=== PATIENT | female | born 1970 | race African-American/Black ===

== ENCOUNTER 2023-11-07 11:35 | Emergency (ER) | payer OTHER ==
--- NOTE | 2023-11-07 12:15 | ED ---
Overdose HPI - General Source: patient, RN notes reviewed <Dia Lim - Last Filed: 11/07/23 12:14> <Bharat Montana - Last Filed: 11/07/23 17:13> - General Stated Complaint: Weakness Time Seen by Provider: 11/07/23 11:49 - History of Present Illness Initial Comments: Quick [id number] female presents the emergency department from [place] for chief complaint of overdose. Patient was discharged from [facility] as they found a "baggy with foreign substance. Currently patient states that she feels "tired'. (Dia Lim) This is a 53-year-old female who was at [facility] for cocaine abuse. [facility] stated that they caught her taking some crushed up medications and so they sent her to the hospital. Patient is alert and oriented x 4 she denies any symptoms denies wanting to be kicked out of [facility] and she denies taking any medication. Patient denies chest pain difficulty breathing shortness of breath. Patient has any fever chills or cough. Patient has abdominal pain patient has nausea vomiting or diarrhea. (Bharat Montana) - Related Data Allergies Allergy/AdvReac Type Severity Reaction Status Date / Time No Known Allergies Allergy Verified 11/07/23 12:20 Review of Systems ROS Other: All systems not noted in ROS Statement are negative. <Dia Lim - Last Filed: 11/07/23 12:14> ROS Other: All systems not noted in ROS Statement are negative. <Bharat Montana - Last Filed: 11/07/23 17:13> ROS Statement: Those systems with pertinent positive or pertinent negative responses have been documented in the HPI. General Exam <Dia Lim - Last Filed: 11/07/23 12:14> <Bharat Montana - Last Filed: 11/07/23 17:13> - General Exam Comments Initial Comments: Visual Physical Exam Vital signs reviewed General: Well-appearing, lethargic, no acute distress. Head: Normocephalic, atraumatic Eyes: PERRLA, EOMI ENT: Airway patent Chest: Nonlabored breathing Skin: No visual rash, normal skin tone Neuro: Alert and oriented 3 Musculoskeletal: No gross abnormalities (Dia Lim) GENERAL: Patient is well-developed and well-nourished. Patient is nontoxic and well- hydrated and is in no acute distress. Patient is very tired but easily arousable with verbal commands ENT: Neck is soft and supple. No significant lymphadenopathy is noted. Oropharynx is clear. Moist mucous membranes. Neck has full range of motion without eliciting any pain. EYES: The sclera were anicteric and conjunctiva were pink and moist. Extraocular movements were intact and pupils were equal round and reactive to light. Eyelids were unremarkable. PULMONARY: Unlabored respirations. Good breath sounds bilaterally. CARDIOVASCULAR: There is a regular rate and rhythm without any murmurs gallops or rubs. ABDOMEN: Soft and nontender with normal bowel sounds. SKIN: Skin is clear with no lesions or rashes and otherwise unremarkable. NEUROLOGIC: Patient is alert and oriented x3. Cranial nerves II through XII are grossly intact. Motor and sensory are also intact. Normal speech, volume and content. Symmetrical smile. MUSCULOSKELETAL: Normal extremities with adequate strength and full range of motion. No lower extremity swelling or edema. No calf tenderness. LYMPHATICS: No significant lymphadenopathy is noted PSYCHIATRIC: Normal psychiatric evaluation. (Bharat Montana) Course Vital Signs 11/07/23 12:17 Temperature 98.2 F Pulse Rate 64 Respiratory 20 Rate Blood Pressure 110/71 O2 Sat by Pulse 100 Oximetry Medical Decision Making <Dia Lim - Last Filed: 11/07/23 12:14> - Lab Data Result diagrams: 11/07/23 12:37 11/07/23 12:37 <Bharat Montana - Last Filed: 11/07/23 17:13> - Medical Decision Making I completed the quick note portion of this chart signed Dia Lim PA-C (Dia Lim) Was pt. sent in by a medical professional or institution (FARHAD Martinez, [employer], urgent care, hospital, or prison...) When possible be specific @ -[facility] Did you speak to anyone other than the patient for history (EMS, parent, family, police, friend...)? What history was obtained from this source @ -No Did you review nursing and triage notes (agree or disagree)? Why? @ -I reviewed and agree with nursing and triage notes Were old charts reviewed (outside hosp., previous admission, EMS record, old EKG, old radiological studies, urgent care reports/EKG's, prison records)? Report findings @ -No old charts were reviewed Differential Diagnosis? @ -Possible overdose, send my alcohol and illegal drug use, normal exam, this is not an all-inclusive list EKG interpreted by me (3pts min.). @ -As above X-rays interpreted by me (1pt min.). @ -None done CT interpreted by me (1pt min.). @ -None done U/S interpreted by me (1pt. min.). @ -None done What testing was considered but not performed or refused? (CT, X-rays, U/S, labs)? Why? @ -None What meds were considered but not given or refused? Why? @ -None Did you discuss the management of the patient with other professionals (professionals i.e. , PA, [employer], lab, RT, psych nurse, social media director, energy scheduler, teacher, executive officer, disability case manager)? Give summary @ -No Was smoking cessation discussed for >3mins.? @ -No Was critical care preformed (if so, how long)? @ -No Were there social determinants of health that impacted care today? How? (H omelessness, low income, unemployed, alcoholism, drug addiction, transportation, low edu. Level, literacy, decrease access to med. care, [place] [facility], rehab)? @ -No Was there de-escalation of care discussed even if they declined (Discuss DNR or withdrawal of care, Hospice)? DNR status @ -No What co-morbidities impacted this encounter? (DM, HTN, Smoking, COPD, CAD, Cancer, CVA, ARF, Chemo, Hep., AIDS, mental health diagnosis, sleep apnea, morbid obesity)? @ -None Was patient admitted / discharged? Hospital course, mention meds given and route, prescriptions, significant lab abnormalities, going to OR and other pertinent info. @ -I spoke with the patient on 2 occasions and neither time did she admit to taking any medications that were not hers or taking excessive amount of her medications and in fact the med she brought from [place] had more pills than they were supposed to have in them. Patient denies any symptoms patient was up and walk to the cafeteria and got food and was eating it she was not drowsy she had no complaints and she wanted to be discharged. Undiagnosed new problem with uncertain prognosis? @ -No Drug Therapy requiring intensive monitoring for toxicity (Heparin, Nitro, Insulin, Cardizem)? @ -No Were any procedures done? @ -No Diagnosis/symptom? @ -Evaluation for drug ingestion Acute, or Chronic, or Acute on Chronic? @ -Acute Uncomplicated (without systemic symptoms) or Complicated (systemic symptoms)? @ -Uncomplicated Side effects of treatment? @ -No Exacerbation, Progression, or Severe Exacerbation? @ -No Poses a threat to life or bodily function? How? (Chest pain, USA, AR, pneumonia, PE, COPD, DKA, ARF, appy, cholecystitis, CVA, Diverticulitis, Homicidal, S uicidal, threat to staff... and all critical care pts) @ -No After I discharged the patient when the nurse went out to discharge her the patient stated she was suicidal so we asked EPS to evaluate the patient. At 3:30 PM I had asked time to go out to the waiting room and evaluate the patient he stated that he would have Geena do it and when Geena was informed of that patient it was 10-5 and the patient had already left AMA (Bharat Montana) - Lab Data Lab Results 11/07/23 11/07/23 Range/Units 12:37 12:37 WBC 11.8 H (3.8-10.6) k/uL RBC 4.20 (3.80-5.40) m/uL Hgb 12.4 (11.4-16.0) gm/dL Hct 40.0 (34.0-46.0) % MCV 95.2 (80.0-100.0) fL MCH 29.4 (25.0-35.0) pg MCHC 30.9 L (31.0-37.0) g/dL RDW 13.8 (11.5-15.5) % Plt Count 305 (150-450) k/uL MPV 6.8 Neutrophils % 83 % Lymphocytes % 9 % Monocytes % 6 % Eosinophils % 1 % Basophils % 1 % Neutrophils # 9.7 H (1.3-7.7) k/uL Lymphocytes # 1.0 (1.0-4.8) k/uL Monocytes # 0.7 (0-1.0) k/uL Eosinophils # 0.1 (0-0.7) k/uL Basophils # 0.1 (0-0.2) k/uL Hypochromasia Moderate Sodium 138 (137-145) mmol/L Potassium 3.9 (3.5-5.1) mmol/L Chloride 104 (98-107) mmol/L Carbon Dioxide 29 (22-30) mmol/L Anion Gap 5 mmol/L BUN 10 (7-17) mg/dL Creatinine 1.06 H (0.52-1.04) mg/dL Est GFR (CKD-EPI)AfAm 69 (>60 ml/min/1.73 sqM) Est GFR (CKD-EPI)NonAf 60 (>60 ml/min/1.73 sqM) Glucose 97 (74-99) mg/dL Calcium 8.6 (8.4-10.2) mg/dL Total Bilirubin 0.3 (0.2-1.3) mg/dL AST 21 (14-36) U/L ALT 15 (4-34) U/L Alkaline Phosphatase 58 (38-126) U/L Total Protein 5.6 L (6.3-8.2) g/dL Albumin 3.5 (3.5-5.0) g/dL Salicylates <1.0 mg/dL Acetaminophen <10.0 ug/mL Serum Alcohol <10 mg/dL Disposition <Dia Lim - Last Filed: 11/07/23 12:14> Is patient prescribed a controlled substance at d/c from ED?: No Time of Disposition: 14:11 <Bharat [place] - Last Filed: 11/07/23 17:13> Clinical Impression: Suicidal ideation, Ingestion of substance Disposition: LEFT AGAINST MEDICAL ADVICE Condition: Good Additional Instructions: Do not take any illegal medications do not take any excessive amount of the own medications and do not take anybody else's medications. If patient has any symptoms whatsoever please return to the emergency department immediately Referrals: Nonstaff,Physician [Primary Care Provider] - 1-2 days
[2023-11-07 12:20] VITALS: BP 110/71; PULSE 64; RESP 20; TEMP 98.2
[2023-11-07 12:59] LABS: Basophils # (A) 0.1 k/uL (0-0.2); Basophils % (A) 1 %; Eosinophils # (A) 0.1 k/uL (0-0.7); Eosinophils % (A) 1 %; HGB 12.4 gm/dL (11.4-16.0); Hypochromasia Moderate; Lymphocytes % (A) 9 %; MCH 29.4 pg (25.0-35.0); MCHC 30.9 g/dL (31.0-37.0); MCV 95.2 fL (80.0-100.0); Mean Platelet Volume 6.8; Monocytes # (A) 0.7 k/uL (0-1.0); Monocytes % (A) 6 %; Neutrophils # (A) 9.7 k/uL (1.3-7.7); Neutrophils % (A) 83 %; Platelet Count 305 k/uL (150-450); RDW 13.8 % (11.5-15.5); WBC 11.8 k/uL (3.8-10.6)
[2023-11-07 13:19] LABS: ALT 15 U/L (4-34); AST 21 U/L (14-36); Acetaminophen <10.0 ug/mL; African American GFR (CKD) 69 (>60 ml/min/1.73 sqM); Albumin 3.5 g/dL (3.5-5.0); Alcohol <10 mg/dL; Alkaline Phosphatase 58 U/L (38-126); Anion Gap 5 mmol/L; Blood Urea Nitrogen 10 mg/dL (7-17); Calcium 8.6 mg/dL (8.4-10.2); Carbon Dioxide 29 mmol/L (22-30); Chloride 104 mmol/L (98-107); Glucose 97 mg/dL (74-99); Non-African American GFR(CKD) 60 (>60 ml/min/1.73 sqM); Potassium 3.9 mmol/L (3.5-5.1); Salicylate <1.0 mg/dL; Sodium 138 mmol/L (137-145); Total Bilirubin 0.3 mg/dL (0.2-1.3); Total Protein 5.6 g/dL (6.3-8.2)
== END 2023-11-07 17:21 | disposition left against medical advice (07) ==
LOC: EC 11:35
DX: R53.1 Weakness
CPT/HCPCS: 36415; 80053; 80143; 80179; 80320; 85025; 93005; 99284